=== PATIENT | female | born 1955 | race Caucasian/White ===

== ENCOUNTER 2025-04-20 21:43 | Emergency (ER) | payer MEDICARE, OTHER | END 2025-04-20 22:56 | disposition home or self-care (01) | LOC: JP.ED 21:43 | DX: L03.116 Cellulitis of left lower limb (principal); Z88.8 Allergy status to other drugs, medicaments and biological substances; Z79.01 Long term (current) use of anticoagulants; Z79.899 Other long term (current) drug therapy | CPT/HCPCS: 99283 ==